=== PATIENT | female | born 1995 | race Caucasian/White ===

== ENCOUNTER 2021-04-13 09:34 | Emergency (ER) | payer MEDICAID ==
[2021-04-13] MEDS ORDERED: Ketorolac 30 MG/ML SDV IM ONE (10:33)
--- NOTE | 2021-04-13 11:39 | EDM.PDOC ---
ED HPI GENERAL MEDICAL PROBLEM - General Chief Complaint: Genitourinary Problem Stated Complaint: ABDOMINAL AND CHEST PAIN Time Seen by Provider: 04/13/21 10:20 Source of Information: Reports: Patient, Family History Limitations: Reports: No Limitations - History of Present Illness INITIAL COMMENTS - FREE TEXT/NARRATIVE: 25-year-old female that is having diffuse abdominal pain, especially lower abdominal pain after "aggressive" intercourse overnight. No fevers or chills, no abdominal distention. She has a history of a hysterectomy due to abnormal cervical cells. Also apparently there is a family history of uterine cancer. She has no fevers or chills, she also has some mild to moderate dysuria but no increased frequency. She is fairly uncomfortable. Slight vaginal spotting initially but no continued bleeding or discharge. Onset: Unknown/Unsure Location: Reports: Abdomen, Pelvis Worsens with: Reports: Movement Associated Symptoms: Reports: Other (Mild dysuria) Lower Abdomen Pain Score (Numeric/FACES): 10 - Related Data Allergies Allergy/AdvReac Type Severity Reaction Status Date / Time codeine Allergy Vomiting Verified 04/13/21 10:13 duloxetine [From Cymbalta] Allergy Facial Verified 04/13/21 10:13 Swelling latex Allergy Itching Verified 04/13/21 10:13 Home Meds: Home Meds Albuterol [Ventolin HFA] 2 puff INH Q6H PRN 04/13/21 [History] Cannabidiol (Cbd) Extract [CBD Oil] 17 mg PO ASDIRECTED 04/13/21 [History] hydrOXYzine HCL [Atarax] 25 mg PO Q6H 04/13/21 [History] ondansetron HCL [Zofran] 8 mg PO Q6H PRN 04/13/21 [History] polyethylene glycoL 3350 [MiraLAX] 17 gm PO DAILY PRN 04/13/21 [History] tiZANidine [Zanaflex] 2 mg PO DAILY 04/13/21 [History] traMADol [Ultram] 50 mg PO Q6H PRN 04/13/21 [History] Past Medical History Respiratory History: Reports: Sleep Apnea Gastrointestinal History: Reports: Irritable Bowel Syndrome [employer] History: Reports: Musculoskeletal History: Reports: Back Pain, Chronic Psychiatric History: Reports: ADD, Bipolar, Depression, OCD - Past Surgical History Female Surgical History: Reports: Hysterectomy, Tubal Ligation Social & Family History - Tobacco Use Tobacco Use Status *Q: Never Tobacco User - Caffeine Use Caffeine Use: Reports: None - Recreational Drug Use Recreational Drug Use: Yes Recreational Drug Type: Reports: Marijuana/Hashish ED ROS GENERAL - Review of Systems Review Of Systems: See Below Constitutional: Denies: Fever, Chills HEENT: Reports: No Symptoms Respiratory: Denies: Shortness of Breath Cardiovascular: Denies: Chest Pain GI/Abdominal: Reports: Abdominal Pain. Denies: Constipation, Diarrhea : Reports: Dysuria. Denies: Urgency Musculoskeletal: Reports: Back Pain Skin: Reports: No Symptoms Neurological: Reports: No Symptoms ED EXAM, GI/ABD - Physical Exam Exam: See Below Exam Limited By: No Limitations General Appearance: Alert, No Apparent Distress (Looks uncomfortable but not distressed) Eyes: Bilateral: Normal Appearance Respiratory/Chest: No Respiratory Distress, Lungs Clear Cardiovascular: Regular Rate, Rhythm GI/Abdominal Exam: Soft, Other (Even light palpation to the abdomen causes her to complain of significant discomfort,) Neurological: Alert, Oriented Psychiatric: Anxious Skin Exam: Warm, Dry Course - Vital Signs Last Recorded V/S: Last Vital Signs Temp 97.6 F 04/13/21 10:19 Pulse 96 04/13/21 10:19 Resp 20 04/13/21 10:19 BP 136/88 04/13/21 10:19 Pulse Ox 97 04/13/21 10:19 - Orders/Labs/Meds Labs: Laboratory Tests 04/13/21 04/13/21 Range/Units 10:33 10:46 Urine Color Yellow (YELLOW) Urine Appearance Clear (CLEAR) Urine pH 7.0 (5.0-8.0) Ur Specific [place] 1.025 (1.008-1.030) Urine Protein Negative (NEGATIVE) mg/dL Urine Glucose (UA) Negative (NEGATIVE) mg/dL Urine Ketones Negative (NEGATIVE) mg/dL Urine Occult Blood Trace-intact H (NEGATIVE) Urine Nitrite Negative (NEGATIVE) Urine Bilirubin Negative (NEGATIVE) Urine Urobilinogen 0.2 (0.2-1.0) EU/dL Ur Leukocyte Esterase Negative (NEGATIVE) Urine RBC 0-5 (0-5) Urine WBC Not seen (0-5) Ur Epithelial Cells Rare Amorphous Sediment Not seen Urine Bacteria Not seen Urine Mucus Not seen Urine Other Urine HCG, Qual Negative Meds: Medications Discontinued Medications Generic Name Dose Route Start Last Admin Trade Name Khoa PRN Reason Stop Dose Admin Ketorolac Tromethamine 30 mg 04/13/21 10:33 04/13/21 11:01 Ketorolac 30 Mg/Ml Sdv IM 04/13/21 10:34 30 mg ONETIME ONE Administration - Re-Assessments/Exams Free Text/Narrative Re-Assessment/Exam: 04/13/21 11:18 A urine was obtained, UA run which was negative. CT of the abdomen and pelvis will be obtained to look for stranding or intra-abdominal air in case there was some type of perforation. Patient was given 30 mg of IM Toradol 04/13/21 12:32 IMPRESSION: Small volume intraperitoneal free air as well as suspected blood products predominating in the pelvic cul-de-sac. Findings of uncertain etiology, but possibly due to vaginal perforation given the clinician reported history. Gynecologic consultation recommended. Case discussed with Dr. Romeo Montoya on 04/13/2021 at 12 o`clock p.m. Patient had significant pain relief from the IM Toradol but the above CT findings were concerning. I discussed her case with [employer] [facility] in [place], they recommended pain control, rest, and recheck on Thursday. Patient was comfortable with the plan. She was discharged with oral Toradol and oral tramadol. Departure - Departure Time of Disposition: 12:53 Disposition: Home, Self-Care 01 Clinical Impression: Vaginal trauma Qualifiers: Encounter type: initial encounter Qualified Code(s): S39.93XA - Unspecified injury of pelvis, initial encounter Abdominal pain Qualifiers: Abdominal location: generalized Qualified Code(s): R10.84 - Generalized abdominal pain - Discharge Information Instructions: Abdominal Pain, Adult Referrals: PCP,None [Primary Care Provider] - Forms: ED Department Discharge Care Plan Goals: Dr. Melo, [facility] in [facility], would like to recheck you at 10 AM on Thursday morning. If you can be at the [facility] and [place] by 930 to register she will work you in. If you are worsening despite pain medication such as heavy vaginal bleeding, fever, or increased pain not responding to medication go directly to the [facility] emergency room to be seen by [facility]. Sepsis Event Note (ED) - Evaluation Sepsis Screening Result: No Definite Risk - Focused Exam Vital Signs: Vital Signs Temp Pulse Resp BP Pulse Ox 04/13/21 10:19 97.6 F 96 20 136/88 97
--- NOTE | 2021-04-13 12:10 | CRLCT ---
For Patients: As a result of the Century Cures Act, medical imaging exams and procedure reports are released immediately into your electronic medical record. You may view this report before your referring provider. If you have questions, please contact your health care provider. INDICATION: Abdominal pain. TECHNIQUE: CT abdomen and pelvis for without intravenous contrast. Coronal and sagittal reformats. COMPARISON: None available. FINDINGS: The imaged lower chest is unremarkable. The unenhanced liver, gallbladder, pancreas, spleen, and adrenals are unremarkable. Symmetric renal size. No urolithiasis or hydronephrosis bilaterally. Unremarkable urinary bladder. Surgically absent uterus. Small volume fluid within the pelvic cul-de-sac appears higher attenuation than simple fluid. The bowel appears normal in caliber and thickness. Normal appendix. Small volume pneumoperitoneum. Additional small volume intraperitoneal free fluid tracking along the right paracolic gutter. No organized/drainable collection identified. The lower abdominal wall demonstrates elongated fat containing hernia along the medial aspect of the right rectus abdominis. Normal caliber abdominal aorta. No suspicious osseous lesion. IMPRESSION: Small volume intraperitoneal free air as well as suspected blood products predominating in the pelvic cul-de-sac. Findings of uncertain etiology, but possibly due to vaginal perforation given the clinician reported history. Gynecologic consultation recommended. Case discussed with Dr. Romeo Montoya on 04/13/2021 at 12 o`clock p.m. Dictated by True Quiroz MD @ 04/13/2021 12:08:46 PM Please note that all CT scans at this facility use dose modulation, iterative reconstruction, and/or weight-based dosing when appropriate to reduce radiation dose to as low as reasonably achievable. Dictated by: True Quiroz MD @ 04/13/2021 12:08:50 (Electronically Signed)
== END 2021-04-13 12:53 | disposition home or self-care (01) ==
LOC: JP.ED 09:34 → EDBD 09:34 → JP.ED 12:53
DX: S39.94XA Unspecified injury of external genitals, initial encounter (principal); Z90.710 Acquired absence of both cervix and uterus; Z88.5 Allergy status to narcotic agent; Z88.8 Allergy status to other drugs, medicaments and biological substances; Z91.040 Latex allergy status; Z79.899 Other long term (current) drug therapy; X58.XXXA Exposure to other specified factors, initial encounter
CPT/HCPCS: 74176; 81001; 81025; 96372; 99284; J1885

== ENCOUNTER 2021-06-05 10:39 | Emergency (ER) | payer OTHER, MEDICAID ==
[2021-06-05] MEDS ORDERED: Ketorolac 30 MG/ML SDV IM ONE (13:57)
[2021-06-05] MEDS ORDERED: Baclofen 10 MG Tab PO ONE (13:58)
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
== END 2021-06-05 16:33 | disposition home or self-care (01) ==
LOC: JP.ED 10:39
DX: S13.4XXA Sprain of ligaments of cervical spine, initial encounter (principal); I10 Essential (primary) hypertension; Z72.0 Tobacco use; Z88.5 Allergy status to narcotic agent; Z88.8 Allergy status to other drugs, medicaments and biological substances; Z91.040 Latex allergy status; Z79.899 Other long term (current) drug therapy; V89.2XXA Person injured in unspecified motor-vehicle accident, traffic, initial encounter
CPT/HCPCS: 72125; 96372; 99284; A9270; J1885

== ENCOUNTER 2024-01-27 17:51 | Emergency (ER) | payer MEDICAID | END 2024-01-27 20:59 | disposition home or self-care (01) | LOC: JP.ED 17:51 | DX: M79.672 Pain in left foot (principal); I10 Essential (primary) hypertension; Z90.710 Acquired absence of both cervix and uterus; Z79.899 Other long term (current) drug therapy; Z91.040 Latex allergy status; Z88.5 Allergy status to narcotic agent; Z88.8 Allergy status to other drugs, medicaments and biological substances | CPT/HCPCS: 73610-26-LT; 73610-LT; 73630-26-LT; 73630-LT; 99283 ==

== ENCOUNTER 2025-01-09 19:22 | Emergency (ER) | payer MEDICAID | END 2025-01-09 19:57 | disposition home or self-care (01) | LOC: JP.ED 19:22 | DX: L25.9 Unspecified contact dermatitis, unspecified cause (principal); E78.00 Pure hypercholesterolemia, unspecified; I10 Essential (primary) hypertension; Z88.5 Allergy status to narcotic agent; Z91.040 Latex allergy status; Z88.8 Allergy status to other drugs, medicaments and biological substances; Z79.51 Long term (current) use of inhaled steroids; Z79.899 Other long term (current) drug therapy | CPT/HCPCS: 99282 ==